=== PATIENT | female | born 1995 | race Caucasian/White ===

== ENCOUNTER 2016-06-04 10:22 | Emergency (ER) | payer OTHER | END 2016-06-04 14:49 | disposition home or self-care (01) | LOC: ER 10:22 | DX: N20.0 Calculus of kidney (principal) | CPT/HCPCS: 36415; 96361; 96374; 96375; 96376; J1885 ==

== ENCOUNTER 2016-07-22 19:52 | Emergency (ER) | payer OTHER | END 2016-07-22 20:58 | disposition home or self-care (01) | LOC: ER 19:52 | DX: R30.0 Dysuria (principal); R31.9 Hematuria, unspecified; R10.9 Unspecified abdominal pain; J44.9 Chronic obstructive pulmonary disease, unspecified; E66.9 Obesity, unspecified; Z87.442 Personal history of urinary calculi ==

== ENCOUNTER 2016-08-03 08:00 | Emergency (ER) | payer OTHER | END 2016-08-03 10:05 | disposition home or self-care (01) | LOC: ER 08:00 | DX: N23 Unspecified renal colic (principal); E87.6 Hypokalemia; F17.210 Nicotine dependence, cigarettes, uncomplicated; J44.9 Chronic obstructive pulmonary disease, unspecified; Z87.442 Personal history of urinary calculi; R19.7 Diarrhea, unspecified | CPT/HCPCS: 36415; 96361; 96374; 96375; J1885 ==

== ENCOUNTER 2016-08-16 08:57 | Emergency (ER) | payer OTHER | END 2016-08-16 11:20 | disposition home or self-care (01) | LOC: ER 08:57 | DX: N20.0 Calculus of kidney (principal); J44.9 Chronic obstructive pulmonary disease, unspecified; F17.200 Nicotine dependence, unspecified, uncomplicated; Z87.442 Personal history of urinary calculi | CPT/HCPCS: 36415; 96361; 96365; 96375; J0696; J1885 ==

== ENCOUNTER 2016-08-29 11:21 | Emergency (ER) | payer OTHER | END 2016-08-29 15:20 | disposition critical access hospital (66) | LOC: ER 11:21 | DX: N13.2 Hydronephrosis with renal and ureteral calculous obstruction (principal); J44.9 Chronic obstructive pulmonary disease, unspecified; F17.200 Nicotine dependence, unspecified, uncomplicated; Z87.442 Personal history of urinary calculi | CPT/HCPCS: 96361; 96374; 96375; 96376 ==

== ENCOUNTER 2016-08-29 11:21 | Observation (INO) | payer OTHER ==
[~2016-08-29] VITALS: Ht 158.8 cm; Wt 93.9 kg
--- NOTE | 2016-08-30 09:59 | NUR ---
0830: PATIENT BACK FROM OR. ALERT. NO COMPLAINTS OF PAIN. RESP. EVEN/UNLABORED. F/C REMOVED PRIOR TO COMING TO THE FLOOR. ONLY COMPLAINT IS BURNING IN THE [place]TH[place] AREA
--- NOTE | 2016-08-30 10:00 | NUR ---
0945: PATIENT HAS VOIDED WITHOUT DIFFICULTY
== END 2016-08-30 09:50 | disposition home or self-care (01) ==
LOC: ER 11:21 → MED 15:21
PROVIDERS: ADMIT Internal Medicine
DX: N13.2 Hydronephrosis with renal and ureteral calculous obstruction (principal); E28.2 Polycystic ovarian syndrome; F17.210 Nicotine dependence, cigarettes, uncomplicated; Z86.14 Personal history of Methicillin resistant Staphylococcus aureus infection; Z23 Encounter for immunization
CPT/HCPCS: 36415; 96375; 96376; C1894; C2617; G0009; G0378; J0696; J1885; J2550; J2704; J2765; Q9967

== ENCOUNTER 2016-08-31 06:33 | Observation (INO) | payer OTHER ==
[~2016-08-31] VITALS: Ht 160 cm; Wt 93.4 kg
== END 2016-09-01 15:45 | disposition home or self-care (01) ==
LOC: ER 06:33 → MED 12:57
PROVIDERS: ADMIT Internal Medicine
DX: N13.2 Hydronephrosis with renal and ureteral calculous obstruction (principal); E87.6 Hypokalemia; E28.2 Polycystic ovarian syndrome; E66.9 Obesity, unspecified; F17.210 Nicotine dependence, cigarettes, uncomplicated; Z86.14 Personal history of Methicillin resistant Staphylococcus aureus infection
CPT/HCPCS: 36415; 96376; C1894; C2617; G0378; J0696; J1885; J2704; J2765; Q9967

== ENCOUNTER 2016-08-31 06:33 | Emergency (ER) | payer OTHER | END 2016-08-31 12:56 | disposition critical access hospital (66) | LOC: ER 06:33 | DX: N23 Unspecified renal colic (principal); J44.9 Chronic obstructive pulmonary disease, unspecified; Z87.442 Personal history of urinary calculi; Z79.899 Other long term (current) drug therapy | CPT/HCPCS: 96361; 96374; 96375; 96376 ==

== ENCOUNTER 2016-09-02 08:39 | Emergency (ER) | payer OTHER | END 2016-09-02 09:30 | disposition home or self-care (01) | LOC: ER 08:39 | DX: R10.9 Unspecified abdominal pain (principal); R31.9 Hematuria, unspecified; J44.9 Chronic obstructive pulmonary disease, unspecified; F41.9 Anxiety disorder, unspecified; Z87.442 Personal history of urinary calculi; Z79.899 Other long term (current) drug therapy | CPT/HCPCS: 96372; J1885 ==

== ENCOUNTER 2016-09-04 20:35 | Emergency (ER) | payer OTHER | END 2016-09-04 23:40 | disposition home or self-care (01) | LOC: ER 20:35 | DX: N39.0 Urinary tract infection, site not specified (principal); N20.2 Calculus of kidney with calculus of ureter; J44.9 Chronic obstructive pulmonary disease, unspecified; E28.2 Polycystic ovarian syndrome; F41.9 Anxiety disorder, unspecified; F17.200 Nicotine dependence, unspecified, uncomplicated; Z87.442 Personal history of urinary calculi; Z79.899 Other long term (current) drug therapy | CPT/HCPCS: 36415; 96365; 96375; 96376; J0696; J1885; J2550 ==

== ENCOUNTER → 2016-09-10 | Day surgery (SDC) | payer OTHER | END | disposition home or self-care (01) | LOC: SDC 12:07 | DX: N20.2 Calculus of kidney with calculus of ureter (principal); E66.9 Obesity, unspecified; F17.210 Nicotine dependence, cigarettes, uncomplicated; Z79.2 Long term (current) use of antibiotics; Z79.899 Other long term (current) drug therapy | CPT/HCPCS: C1894; C2617; J1885; J2704; Q9967 ==

== ENCOUNTER 2016-09-12 08:28 | Emergency (ER) | payer OTHER | END 2016-09-12 13:03 | disposition home or self-care (01) | LOC: ER 08:28 | DX: R10.9 Unspecified abdominal pain (principal); R11.2 Nausea with vomiting, unspecified; J44.9 Chronic obstructive pulmonary disease, unspecified; J30.2 Other seasonal allergic rhinitis; F17.210 Nicotine dependence, cigarettes, uncomplicated; Z87.442 Personal history of urinary calculi; Z79.899 Other long term (current) drug therapy | CPT/HCPCS: 36415; 96361; 96365; 96375; 96376; J0696 ==